=== PATIENT | male | born 1970 | race Caucasian/White ===

== ENCOUNTER 2016-10-06 14:01 | Emergency (ER) | payer MEDICAID, BC, OTHER ==
[2016-10-06 14:23] VITALS: BP 134/95
[2016-10-06] MEDS ORDERED: Ketorolac 30 MG/ML SDV IVPUSH ONE (14:31)
[2016-10-06] MEDS ORDERED: diphenhydrAMINE 50 MG/ML SDV IVPUSH ONE (14:31)
[2016-10-06] MEDS ORDERED: methylPREDNISolone Sodium Succinate 125 MG/2 ML SDV IVPUSH ONE (14:32)
[2016-10-06] MEDS ORDERED: Sodium Chloride 0.9% 1,000 ML IV SCH (14:45)
[2016-10-06] MEDS ORDERED: methylPREDNISolone Sodium Succinate 125 MG/2 ML SDV ONE (14:46)
[2016-10-06] MEDS ORDERED: diphenhydrAMINE 50 MG/ML SDV ONE (14:46)
[2016-10-06] MEDS ORDERED: Ketorolac 30 MG/ML SDV ONE (14:46)
[2016-10-06] MEDS ORDERED: LORazepam 2 MG/ML MDV IM PRN (15:45)
[2016-10-06] MEDS ORDERED: LORazepam 2 MG/ML MDV IVPUSH ONE (15:50)
[2016-10-06] MEDS ORDERED: Acetaminophen/HYDROcodone 325-10 MG Tab PO ONE (15:54)
--- NOTE | 2016-10-06 15:58 | EDM.PDOC ---
ED HPI GENERAL MEDICAL PROBLEM - General Chief Complaint: General Stated Complaint: headache Time Seen by Provider: 10/06/16 14:10 Source of Information: Reports: Patient History Limitations: Reports: No Limitations - History of Present Illness INITIAL COMMENTS - FREE TEXT/NARRATIVE: acute on chronic headache; this is a 46 year old male presents to ER with friend , has complaints of his usual headache, that started on or Friday. He reports throbbing pain in head and ears. Has past history of TBI 2 years ago. He also reports has ran out of his Vicodin and is requesting refill of this medication. Onset: Gradual Onset Date: 09/26/16 Duration: Day(s): (four), Constant Location: Reports: Head Quality: Reports: Same as Previous Episode Severity: Moderate Improves with: Reports: Medication (vicodin resolves headache, but is out of medication) Worsens with: Reports: None Context: Reports: Other (TBI 2 year ago with intermittent headaches.) Associated Symptoms: Reports: Headaches Treatments TOOL MARKER: Reports: Acetaminophen, NSAIDS - Related Data Allergies Allergy/AdvReac Type Severity Reaction Status Date / Time No Known Allergies Allergy Verified 10/06/16 14:17 Home Meds: Home Meds Hydrocodone/Acetaminophen [Hydrocodon-Acetaminophen 5-325] 1 each PO Q6HR PRN # 15 tablet 03/28/16 [Rx] Past Medical History HEENT History: Reports: None Cardiovascular History: Reports: None Respiratory History: Reports: None Gastrointestinal History: Reports: None Genitourinary History: Reports: None Musculoskeletal History: Reports: Fracture Other Musculoskeletal History: Fx bones and stitches, screws in L wrist and L ankle. Broke L clavicle and tore bicep and triceps and had no feeling in hand, it was weak, got some strength but still no feeling. Neurological History: Reports: Brain Injury, Concussion, Headaches, Chronic Psychiatric History: Reports: None, Psychosis Endocrine/Metabolic History: Reports: None Hematologic History: Reports: None Immunologic History: Reports: None Oncologic (Cancer) History: Reports: None Dermatologic History: Reports: None Social & Family History - Tobacco Use Smoking Status *Q: Former Smoker Used Tobacco, but Quit: No Second Hand Smoke Exposure: Yes - Caffeine Use Caffeine Use: Reports: Coffee, Soda Other Caffeine Use: Unable to answer - Recreational Drug Use Recreational Drug Use: Yes Drug Use in Last 12 Months: No Recreational Drug Type: Reports: Cocaine, LSD (Acid) ED ROS GENERAL - Review of Systems Review Of Systems: See Below Constitutional: Reports: Other (headache for 4 days) HEENT: Reports: Ear Pain Respiratory: Reports: No Symptoms Cardiovascular: Reports: No Symptoms Endocrine: Reports: No Symptoms GI/Abdominal: Reports: No Symptoms, Other (ate breakfast without any nausea, vomiting) : Reports: No Symptoms Musculoskeletal: Reports: No Symptoms Skin: Reports: No Symptoms Neurological: Reports: Headache Psychiatric: Reports: Anxiety Hematologic/Lymphatic: Reports: No Symptoms Immunologic: Reports: No Symptoms ED EXAM, GENERAL - Physical Exam Exam: See Below Exam Limited By: No Limitations General Appearance: Alert, WD/WN, No Apparent Distress, Anxious Eye Exam: Bilateral Eye: EOMI, Normal Inspection, PERRL Ears: Normal External Exam Ear Exam: Bilateral Ear: Auricle Normal, Canal Normal, TM normal Nose: Normal Inspection, Normal Mucosa, No Blood Throat/Mouth: Normal Inspection, Normal Lips, Normal Teeth, Normal Gums, Normal Oropharynx, Normal Voice, No Airway Compromise Head: Atraumatic, Normocephalic Neck: Normal Inspection Respiratory/Chest: No Respiratory Distress, Lungs Clear, Normal Breath Sounds, No Accessory Muscle Use, Chest Non-Tender Cardiovascular: Normal Peripheral Pulses, Regular Rate, Rhythm, No Murmur GI/Abdominal: Normal Bowel Sounds, Soft, Non-Tender (Male) Exam: Deferred Rectal (Males) Exam: Deferred Back Exam: Normal Inspection, Full Range of Motion Extremities: Normal Inspection, Normal Range of Motion, Non-Tender, No Pedal Edema, Normal Capillary Refill Neurological: Alert, Oriented, CN II-XII Intact, Normal Cognition, Normal Gait, Normal Reflexes, No Motor/Sensory Deficits Psychiatric: Normal Affect, Normal Mood, Anxious Skin Exam: Warm, Dry, Intact, Normal Color, No Rash Lymphatic: No Adenopathy Course - Vital Signs Last Recorded V/S: Last Vital Signs Temp 37.0 C 10/06/16 14:22 Pulse 80 10/06/16 14:22 Resp 16 10/06/16 14:22 BP 134/95 H 10/06/16 14:22 Pulse Ox 100 10/06/16 14:22 - Orders/Labs/Meds Meds: Medications Discontinued Medications Generic Name Dose Route Start Last Admin Trade Name Freq PRN Reason Stop Dose Admin Hydrocodone Bitart/Acetaminophen 1 tab 10/06/16 15:54 [place] 325-10 Mg PO 10/06/16 15:55 ONETIME ONE Diphenhydramine HCl 25 mg 10/06/16 14:31 10/06/16 14:51 Benadryl IVPUSH 10/06/16 14:32 50 mg ONETIME ONE Administration Diphenhydramine HCl Confirm 10/06/16 14:46 10/06/16 14:53 Benadryl Administered 10/06/16 14:47 Not Given Dose 50 mg .ROUTE .STK-MED ONE Sodium Chloride 1,000 mls @ 999 mls/hr 10/06/16 14:45 10/06/16 14:38 Normal Saline IV 999 mls/hr ASDIRECTED CAROLYNN Administration Ketorolac Tromethamine 30 mg 10/06/16 14:31 10/06/16 14:48 Toradol IVPUSH 10/06/16 14:32 30 mg ONETIME ONE Administration Ketorolac Tromethamine Confirm 10/06/16 14:46 10/06/16 14:53 Toradol Administered 10/06/16 14:47 Not Given Dose 30 mg .ROUTE .STK-MED ONE Lorazepam 1 mg 10/06/16 15:50 10/06/16 16:13 Ativan IVPUSH 10/06/16 15:51 Not Given ONETIME ONE Lorazepam 1 mg 10/06/16 15:45 10/06/16 15:47 Ativan IM 10/06/16 16:45 1 mg ONETIME PRN Administration Agitation Methylprednisolone Sodium Succinate 125 mg 10/06/16 14:32 10/06/16 14:42 Solu-Medrol IVPUSH 10/06/16 14:33 125 mg ONETIME ONE Administration Methylprednisolone Sodium Succinate Confirm 10/06/16 14:46 10/06/16 14:52 Solu-Medrol Administered 10/06/16 14:47 Not Given Dose 125 mg .ROUTE .STK-MED ONE - Re-Assessments/Exams Free Text/Narrative Re-Assessment/Exam: 10/06/16 15:30 Mr. Turcios treated with IV meds and fluids, was noted to be sleeping and snoring. He woke up and stated still with headache. Discussed will give Ativan 1 mg IV for anxiety, but no refill of Vicodin. He will need to see his Primary Care Provider for refill of this medication. Mr. Turcios not happy but agrees to plan of care. 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 Turcios reports pain persist -given IV Ativan 1 mg -will discharge to home, advise to rest, push fluids, take medications as prescribed -call his Primary Care Provider for medication refill of prescription medication Return to Clinic or ER if symptoms return or has any concerns. - Problem List & Annotations (1) Chronic headache SNOMED Code(s): 802532147 Code(s): R51 - HEADACHE Status: Acute Qualifiers: Headache type: post-traumatic Intractability: not intractable Qualified Code(s): G44.329 - Chronic post-traumatic headache, not intractable - Problem List Review Problem List Initiated/Reviewed/Updated: Yes - Assessment/Plan Plan: Chronic Headaches -given IV fluids, IV meds; improvement noted, but Mr. Turcios reports pain persist -given Ativan 1 mg IV -will discharge to home, advise to rest, push fluids, take medications as prescribed -call his Primary Care Provider for medication refill of prescription medication Return to Clinic or ER if symptoms return or has any concerns.
== END 2016-10-06 16:00 | disposition home or self-care (01) ==
LOC: LB.ED 14:01
DX: R51 Headache (principal); G89.29 Other chronic pain; Z87.891 Personal history of nicotine dependence
CPT/HCPCS: 96372; 96374; 96375; 99283; J1200; J1885; J2060; J2930; J7040

== ENCOUNTER 2016-10-07 04:10 | Emergency (ER) | payer BC, MEDICAID ==
[2016-10-07 04:30] VITALS: BP 148/99
[2016-10-07] MEDS ORDERED: Acetaminophen/HYDROcodone 325-5 MG Tab PO ONE (04:31)
[2016-10-07] MEDS ORDERED: Promethazine 25 MG Tab PO PRN (04:31)
--- NOTE | 2016-10-07 04:47 | EDM.PDOC ---
ED HPI GENERAL MEDICAL PROBLEM - General Chief Complaint: Neurological Problem Stated Complaint: HEADACHE Time Seen by Provider: 10/07/16 04:37 Source of Information: Reports: Patient History Limitations: Reports: No Limitations - History of Present Illness INITIAL COMMENTS - FREE TEXT/NARRATIVE: chronic headache; this is a 46 year old male present to ER from walking from his home 2 blocks away. He was seem yesterday afternoon for same symptoms, he is here request pain medication for headache. He has been at home all day, was able to rest for a few hours then was up working around the home. His head pain return full force he has been up all night trying to block out the pain with work, but becoming agitated, decided to walk to ER. pain; chronic headache, unchange from previous headache. no nausea, vomiting. Onset: Gradual Duration: Getting Worse Location: Reports: Head Quality: Reports: Same as Previous Episode Improves with: Reports: None Worsens with: Reports: None Context: Reports: Other (chronic headaches) Associated Symptoms: Reports: Other (irratation) Frontal Headache Pain Score (Numeric/FACES): 10 - Related Data Allergies Allergy/AdvReac Type Severity Reaction Status Date / Time No Known Allergies Allergy Verified 10/07/16 04:30 Home Meds: Home Meds Hydrocodone/Acetaminophen [Hydrocodon-Acetaminophen 5-325] 1 each PO Q6HR PRN # 15 tablet 03/28/16 [Rx] Past Medical History HEENT History: Reports: None Cardiovascular History: Reports: None Respiratory History: Reports: None Gastrointestinal History: Reports: None Genitourinary History: Reports: None Musculoskeletal History: Reports: Fracture Other Musculoskeletal History: Fx bones and stitches, screws in L wrist and L ankle. Broke L clavicle and tore bicep and triceps and had no feeling in hand, it was weak, got some strength but still no feeling. Neurological History: Reports: Brain Injury, Concussion, Headaches, Chronic Psychiatric History: Reports: None, Psychosis Endocrine/Metabolic History: Reports: None Hematologic History: Reports: None Immunologic History: Reports: None Oncologic (Cancer) History: Reports: None Dermatologic History: Reports: None Social & Family History - Tobacco Use Smoking Status *Q: Former Smoker Used Tobacco, but Quit: No Second Hand Smoke Exposure: Yes - Caffeine Use Caffeine Use: Reports: Coffee, Soda Other Caffeine Use: Unable to answer - Recreational Drug Use Recreational Drug Use: Yes Drug Use in Last 12 Months: No Recreational Drug Type: Reports: Cocaine, LSD (Acid) ED ROS GENERAL - Review of Systems Review Of Systems: See Below Constitutional: Reports: Other (headache) HEENT: Reports: No Symptoms Respiratory: Reports: No Symptoms Cardiovascular: Reports: No Symptoms Endocrine: Reports: No Symptoms GI/Abdominal: Reports: No Symptoms : Reports: No Symptoms Musculoskeletal: Reports: No Symptoms Neurological: Reports: Headache, Pre-Existing Deficit Psychiatric: Reports: Agitation Hematologic/Lymphatic: Reports: No Symptoms Immunologic: Reports: No Symptoms ED EXAM, GENERAL - Physical Exam Exam: See Below Exam Limited By: No Limitations General Appearance: Alert, WD/WN, No Apparent Distress, Anxious Eye Exam: Bilateral Eye: EOMI, Normal Inspection, PERRL Ears: Normal External Exam, Normal Canal, Hearing Grossly Normal, Normal TMs Ear Exam: Bilateral Ear: Auricle Normal, Canal Normal, TM normal Nose: Normal Inspection, Normal Mucosa, No Blood Throat/Mouth: Normal Inspection, Normal Lips, Normal Teeth, Normal Gums, Normal Oropharynx, Normal Voice, No Airway Compromise Head: Atraumatic, Normocephalic Neck: Normal Inspection, Supple, Non-Tender, Full Range of Motion Respiratory/Chest: No Respiratory Distress, Lungs Clear, Normal Breath Sounds, No Accessory Muscle Use, Chest Non-Tender Cardiovascular: Normal Peripheral Pulses, Regular Rate, Rhythm, No Edema, No Gallop, No JVD, No Murmur, No Rub GI/Abdominal: Normal Bowel Sounds, Soft, Non-Tender, No Organomegaly, No Distention, No Abnormal Bruit, No Mass Neurological: No Motor/Sensory Deficits Psychiatric: Normal Affect, Normal Mood Skin Exam: Warm, Dry, Intact, Normal Color, No Rash Lymphatic: No Adenopathy Course - Vital Signs Last Recorded V/S: Last Vital Signs Temp 36.8 C 10/07/16 04:24 Pulse 97 10/07/16 04:24 Resp 16 10/07/16 04:24 BP 148/99 H 10/07/16 04:24 Pulse Ox 98 10/07/16 04:24 - Orders/Labs/Meds Orders: Active Orders 24 hr Category Date Time Status Promethazine [Phenergan] Med 10/07/16 04:31 Active 25 mg PO Q4H PRN Medication Orders Promethazine HCl (Phenergan) 25 mg PO Q4H PRN PRN Reason: Nausea/Vomiting Last Admin: 10/07/16 04:36 Dose: 25 mg Meds: Medications Generic Name Dose Route Start Last Admin Trade Name Zac PRN Reason Stop Dose Admin Promethazine HCl 25 mg 10/07/16 04:31 10/07/16 04:36 Phenergan PO 25 mg Q4H PRN Administration Nausea/Vomiting Discontinued Medications Generic Name Dose Route Start Last Admin Trade Name Frediane PRN Reason Stop Dose Admin Hydrocodone Bitart/Acetaminophen 1 tab 10/07/16 04:31 10/07/16 04:36 [place] 325-5 Mg PO 10/07/16 04:32 1 tab ONETIME ONE Administration - Re-Assessments/Exams Free Text/Narrative Re-Assessment/Exam: 10/07/16 04:50 will give hydrocodone 5-325 mg po once, phenergan 25 mg po once advise to go home and rest. will follow up in clinic today for medication refill. Mr. Turcios agrees with plan of care. Departure - Departure Time of Disposition: 04:52 Disposition: Home, Self-Care 01 Condition: Good Clinical Impression: Chronic headache Qualifiers: Headache type: post-traumatic Intractability: not intractable Qualified Code(s) : G44.329 - Chronic post-traumatic headache, not intractable - Discharge Information Forms: ED Department Discharge Care Plan Goals: Headache -treated with oral medication -rest, push fluids, take tylenol or motrin as directed return to clinic or er if not improved or symptoms worsen. - Problem List & Annotations (1) Chronic headache SNOMED Code(s): 657373626 Code(s): R51 - HEADACHE Status: Acute Priority: Low Qualifiers: Headache type: post-traumatic Intractability: not intractable Qualified Code(s): G44.329 - Chronic post-traumatic headache, not intractable - Problem List Review Problem List Initiated/Reviewed/Updated: Yes - My Orders Last 24 Hours: My Active Orders 10/07/16 04:31 Promethazine [Phenergan] 25 mg PO Q4H PRN - Assessment/Plan Last 24 Hours: My Active Orders 10/07/16 04:31 Promethazine [Phenergan] 25 mg PO Q4H PRN Plan: Headache -treated with oral medication -rest, push fluids, take tylenol or motrin as directed return to clinic or er if not improved or symptoms worsen.
== END 2016-10-07 04:45 | disposition home or self-care (01) ==
LOC: LB.ED 04:10
DX: G44.329 Chronic post-traumatic headache, not intractable (principal); Z87.891 Personal history of nicotine dependence
CPT/HCPCS: 99283; A9270

== ENCOUNTER 2016-11-04 17:21 | Emergency (ER) | payer MEDICAID, OTHER ==
[2016-11-04 17:36] VITALS: BP 137/91
[2016-11-04] MEDS ORDERED: Ondansetron 4 MG Tab.DIS ONE (17:40)
[2016-11-04] MEDS ORDERED: Ketorolac 60 MG/2 ML SDV IM ONE (18:05)
[2016-11-04] MEDS ORDERED: Promethazine 25 MG/ML SDV IM ONE (18:10)
[2016-11-04] MEDS ORDERED: Promethazine 25 MG/ML SDV ONE (18:13)
[2016-11-04] MEDS ORDERED: Ketorolac 60 MG/2 ML SDV ONE (18:13)
--- NOTE | 2016-11-04 18:41 | EDM.PDOC ---
ED HPI GENERAL MEDICAL PROBLEM - General Chief Complaint: General Stated Complaint: headache Time Seen by Provider: 11/04/16 17:45 Source of Information: Reports: Patient History Limitations: Reports: No Limitations - History of Present Illness INITIAL COMMENTS - FREE TEXT/NARRATIVE: This is a 46yo M with a long standing history of frequent headaches. Today he states he was working and reached up to get a wrench and hit his head on a ladder. He states his headache became unbearable and is a 10/10 at this time. He recently saw Dr. Bustillos and discussed surgical options for his C-Spine and is still considering his options as he is aware of complications that may arise. He has a follow up [facility] [place] on . He states that they focused on his headache and gave him injections along the forehead that did not help at all. Onset: Sudden Duration: Hour(s): Location: Reports: Head Quality: Reports: Ache Severity: Severe Improves with: Reports: None Worsens with: Reports: None Associated Symptoms: Reports: Nausea/Vomiting headache Pain Score (Numeric/FACES): 10 - Related Data Allergies Allergy/AdvReac Type Severity Reaction Status Date / Time No Known Allergies Allergy Verified 11/04/16 17:36 Past Medical History HEENT History: Reports: None Cardiovascular History: Reports: None Respiratory History: Reports: None Gastrointestinal History: Reports: None Genitourinary History: Reports: None Musculoskeletal History: Reports: Fracture Other Musculoskeletal History: Fx bones and stitches, screws in L wrist and L ankle. Broke L clavicle and tore bicep and triceps and had no feeling in hand, it was weak, got some strength but still no feeling. Neurological History: Reports: Brain Injury, Concussion, Headaches, Chronic Psychiatric History: Reports: None, Psychosis Endocrine/Metabolic History: Reports: None Hematologic History: Reports: None Immunologic History: Reports: None Oncologic (Cancer) History: Reports: None Dermatologic History: Reports: None Social & Family History - Tobacco Use Smoking Status *Q: Former Smoker Used Tobacco, but Quit: No Second Hand Smoke Exposure: Yes - Caffeine Use Caffeine Use: Reports: Coffee, Soda Other Caffeine Use: Unable to answer - Recreational Drug Use Recreational Drug Use: Yes Drug Use in Last 12 Months: No Recreational Drug Type: Reports: Cocaine, LSD (Acid) ED ROS GENERAL - Review of Systems Review Of Systems: ROS reveals no pertinent complaints other than HPI. ED EXAM, GENERAL - Physical Exam Exam: See Below Exam Limited By: No Limitations General Appearance: Alert, WD/WN, Mild Distress Eye Exam: Bilateral Eye: EOMI, PERRL Ears: Normal External Exam Nose: Normal Inspection Throat/Mouth: Normal Inspection Head: Other (swelling at the right upper scalp with a bruise 3x4cm) Neck: Normal Inspection Respiratory/Chest: No Respiratory Distress Cardiovascular: Normal Peripheral Pulses, Regular Rate, Rhythm GI/Abdominal: Normal Bowel Sounds Neurological: Alert, Oriented, CN II-XII Intact Psychiatric: Normal Affect, Normal Mood Skin Exam: Warm, Dry, Intact Course - Vital Signs Last Recorded V/S: Last Vital Signs Temp 36.5 C 11/04/16 17:33 Pulse 87 11/04/16 17:33 Resp 16 11/04/16 17:33 BP 137/91 H 11/04/16 17:33 Pulse Ox 98 11/04/16 17:33 - Orders/Labs/Meds Orders: Active Orders 24 hr Category Date Time Status Head wo Cont [CT] Stat Exams 11/04/16 17:30 Taken Meds: Medications Discontinued Medications Generic Name Dose Route Start Last Admin Trade Name Zac PRN Reason Stop Dose Admin Ketorolac Tromethamine 60 mg 11/04/16 18:05 11/04/16 18:15 Toradol IM 11/04/16 18:06 60 mg ONETIME ONE Administration Ketorolac Tromethamine Confirm 11/04/16 18:13 Toradol Administered 11/04/16 18:14 Dose 60 mg .ROUTE .STK-MED ONE Promethazine HCl 25 mg 11/04/16 18:10 11/04/16 18:15 Phenergan IM 11/04/16 18:11 25 mg ONETIME ONE Administration Promethazine HCl Confirm 11/04/16 18:13 Phenergan Administered 11/04/16 18:14 Dose 25 mg .ROUTE .STK-MED ONE Departure - Departure Time of Disposition: 18:20 Disposition: Home, Self-Care 01 Condition: Good Clinical Impression: Headache Qualifiers: Headache type: unspecified Headache chronicity pattern: acute headache Intractability: intractable Qualified Code(s): R51 - Headache - Discharge Information Instructions: Anterior Cervical Diskectomy and Fusion Referrals: PCP,None [Primary Care Provider] - Forms: ED Department Discharge Additional Instructions: Get some rest and follow up with the pain management and/or Dr. Bustillos this week. Care Plan Goals: Counseled on the need to f/u with specialists. Discussed supportive/ conservative measures for relief. F/u as needed. - My Orders Last 24 Hours: My Active Orders 11/04/16 17:30 Head wo Cont [CT] Stat - Assessment/Plan Last 24 Hours: My Active Orders 11/04/16 17:30 Head wo Cont [CT] Stat
--- NOTE | 2016-11-06 08:17 | CR ---
Date of Service: 11/04/2016 Clinical Data: Hematoma on right side of head. UNENHANCED BRAIN CT: Multislice acquisition through the brain without IV contrast was performed. Comparison is made to a prior exam dated 03/26/2016. There is diffuse cerebral atrophy. There are periventricular lucencies bilaterally consistent with small vessel ischemic change. No masses or mass effect. No intracranial hemorrhage. No evidence of acute or subacute infarct. There is minimal mucosal thickening in the ethmoid sinuses consistent with chronic sinusitis. Impression: No acute intracranial abnormalities. Thank you for allowing us to participate in the care of your patient. JACOB
== END 2016-11-04 18:23 | disposition home or self-care (01) ==
LOC: LB.ED 17:21
DX: S00.03XA Contusion of scalp, initial encounter (principal); Z87.891 Personal history of nicotine dependence; W22.03XA Walked into furniture, initial encounter
CPT/HCPCS: 70450; 96372; 99284; A9270; J1885; J2550

== ENCOUNTER 2017-05-13 12:38 | Emergency (ER) | payer BC, SELFPAY ==
[2017-05-13 12:53] VITALS: BP 152/92
--- NOTE | 2017-05-13 13:12 | EDM.PDOC ---
ED HPI GENERAL MEDICAL PROBLEM - General Chief Complaint: General Stated Complaint: HEAD PAIN Time Seen by Provider: 05/13/17 12:40 Source of Information: Reports: Patient History Limitations: Reports: No Limitations - History of Present Illness INITIAL COMMENTS - FREE TEXT/NARRATIVE: According to patient he has been having headache for a long time now. He presents with headache al over the head started on Friday. rates pain at 10/ 10.No blurry vision, dizziness. He calims he has been seen by Dr. 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 Also he claims that his abdomen is hurting all over, he has been having vomiting episodes at home. Wants to be checked for pancreatitis. he has had previous history of pancreatitis. He claims he did have normal bowel movement yesterday. abdominal bloating. no fever or chils. Onset Date: 05/11/17 Location: Reports: Head, Abdomen Quality: Reports: Ache Severity: Moderate Improves with: Reports: None Worsens with: Reports: None Associated Symptoms: Reports: Nausea/Vomiting. Denies: Confusion, Chest Pain, Cough, Fever/Chills, Headaches, Rash, Seizure, Shortness of Breath, Syncope, Weakness Bilateral Upper Neck Pain Score (Numeric/FACES): 12 - Related Data Allergies Allergy/AdvReac Type Severity Reaction Status Date / Time No Known Allergies Allergy Verified 11/04/16 17:36 Past Medical History HEENT History: Reports: None Cardiovascular History: Reports: None Respiratory History: Reports: None Gastrointestinal History: Reports: None Genitourinary History: Reports: None Musculoskeletal History: Reports: Fracture Other Musculoskeletal History: Fx bones and stitches, screws in L wrist and L ankle. Broke L clavicle and tore bicep and triceps and had no feeling in hand, it was weak, got some strength but still no feeling. Neurological History: Reports: Brain Injury, Concussion, Headaches, Chronic Psychiatric History: Reports: None, Psychosis Endocrine/Metabolic History: Reports: None Hematologic History: Reports: None Immunologic History: Reports: None Oncologic (Cancer) History: Reports: None Dermatologic History: Reports: None Social & Family History - Tobacco Use Smoking Status *Q: Light Tobacco Smoker Used Tobacco, but Quit: No Second Hand Smoke Exposure: Yes - Caffeine Use Caffeine Use: Reports: Coffee, Soda Other Caffeine Use: Unable to answer - Recreational Drug Use Recreational Drug Use: Yes Drug Use in Last 12 Months: No Recreational Drug Type: Reports: Cocaine, LSD (Acid) ED ROS GENERAL - Review of Systems Review Of Systems: See Below Constitutional: Denies: Fever, Chills HEENT: Denies: Rhinitis, Sinus Problem, Throat Pain, Throat Swelling Respiratory: Denies: Cough, Sputum Cardiovascular: Denies: Chest Pain, Lightheadedness GI/Abdominal: Reports: Abdominal Pain, Nausea, Vomiting. Denies: Constipation, Diarrhea : Denies: Dysuria, Flank Pain Musculoskeletal: Denies: Foot Pain, Joint Pain, Joint Swelling Skin: Denies: Bruising, Pruritis Neurological: Denies: Dizziness, Headache, Seizure, Syncope, Tingling Psychiatric: Denies: Agitation, Anxiety ED EXAM, GENERAL - Physical Exam Exam: See Below Exam Limited By: No Limitations General Appearance: Alert, WD/WN, No Apparent Distress Eye Exam: Bilateral Eye: EOMI, PERRL Ears: Normal External Exam, Normal Canal, Hearing Grossly Normal, Normal TMs Ear Exam: Bilateral Ear: Auricle Normal, Canal Normal, TM normal Nose: Normal Inspection, Normal Mucosa, No Blood Throat/Mouth: Normal Inspection, Normal Lips, Normal Teeth, Normal Gums, Normal Oropharynx, Normal Voice, No Airway Compromise Head: Atraumatic, Normocephalic Neck: Normal Inspection, Supple, Non-Tender, Full Range of Motion Respiratory/Chest: No Respiratory Distress, Lungs Clear, Normal Breath Sounds, No Accessory Muscle Use, Chest Non-Tender Cardiovascular: Normal Peripheral Pulses, Regular Rate, Rhythm, No Edema, No Gallop, No JVD, No Murmur, No Rub GI/Abdominal: Normal Bowel Sounds, Soft, Distended, Tender (all over the abdomen ). No: Guarding, Rigid, Rebound, Mass Extremities: Normal Inspection, Normal Range of Motion, Non-Tender, Normal Capillary Refill, No Pedal Edema Neurological: Alert, Oriented, CN II-XII Intact, Normal Cognition, Normal Gait, Normal Reflexes, No Motor/Sensory Deficits Course - Vital Signs Text/Narrative:: I did call, 's office at [facility] and discuss patient with him. Apparently Dr. Nolen has seen him one time in 2017 for headache issue and workup was negative. He recommended non-narcotic treatment for his headache, in the form of Prednisone 40mg daily for 3 days. But, Presently I am waiting on his lab work, to rule out pancreatitis, before starting the treatment.He did receive zofran 4mg ODT one dose. Pt's CT abdomen is negative for acute abdomen. Also his CBC and CMP are normal His Lipase is normal. His ETOH level is 177 elevated. I did discuss the results with patient and reassured that he might have had some gastroenteritis.As per 's recommendation gave him script fo prednisone 40mg daily for 3 days. He requested if he could get some hydrocodone , which I have declined at this point. I have advised patient to call Dr. Nolen 's office and make followup appointment for his headache workup. Last Recorded V/S: Last Vital Signs Temp 98.1 F 05/13/17 12:52 Pulse 109 H 05/13/17 12:52 Resp 20 05/13/17 12:52 BP 152/92 H 05/13/17 12:52 Pulse Ox 98 05/13/17 12:52 - Orders/Labs/Meds Orders: Active Orders 24 hr Category Date Time Status Abdomen Pelvis wo Cont [CT] Stat Exams 05/13/17 12:58 Taken Labs: Laboratory Tests 05/13/17 05/13/17 Range/Units 13:27 13:28 WBC 5.8 D (4.0-11.0) K/uL RBC 5.14 (4.50-6.50) M/uL Hgb 15.9 (13.0-18.0) g/dL Hct 45.0 (40.0-54.0) % MCV 88 (76-96) fL MCH 30.9 (27.0-32.0) pg MCHC 35.3 H (31.0-35.0) g/dL RDW 13.1 (11.0-16.0) % Plt Count 242 (150-400) K/uL MPV 9.2 (6.0-10.0) fL Neut % (Auto) 47.0 (45.0-70.0) % Lymph % (Auto) 38.2 (20.0-40.0) % [place] % (Auto) 13.4 H (3.0-10.0) % Eos % (Auto) 0.7 L (1.0-5.0) % Baso % (Auto) 0.7 H (0.0-0.5) % Neut # (Auto) 2.73 (2.00-7.50) K/uL Lymph # (Auto) 2.22 (1.50-4.00) K/uL [place] # (Auto) 0.78 (0.20-0.80) K/uL Eos # (Auto) 0.04 (0.04-0.40) K/uL Baso # (Auto) 0.04 (0.02-0.10) K/uL Sodium 145 (136-145) mmol/L Potassium 4.4 (3.5-5.1) mmol/L Chloride 103 (98-107) mmol/L Carbon Dioxide 26.8 (21.0-32.0) mmol/L Anion Gap 19.6 H (5.0-15.0) mmol/L BUN 14 D (8-26) mg/dL Creatinine 0.82 (0.70-1.30) mg/dL Est Cr Clr Drug Dosing 111.22 mL/min Estimated GFR (MDRD) > 60 (>60) MLS/MIN BUN/Creatinine Ratio 17.1 (6-25) Glucose 129 H D (74-100) mg/dL Calcium 9.3 (8.5-10.1) mg/dL Total Bilirubin 0.9 D (0.0-1.0) mg/dL AST 39 H (15-37) U/L ALT 34 (12-78) U/L Alkaline Phosphatase 62 (46-116) U/L Total Protein 8.2 (6.4-8.2) g/dL Albumin 4.4 (3.4-5.0) g/dL Globulin 3.8 (2.2-4.2) g/dL Albumin/Globulin Ratio 1.2 (0.8-2.0) Lipase 176 D (73-393) U/L Ethyl Alcohol 177.0 H (0.0-0.0) mg/dL Meds: Medications Discontinued Medications Generic Name Dose Route Start Last Admin Trade Name Freq PRN Reason Stop Dose Admin Ondansetron HCl 4 mg 05/13/17 13:58 05/13/17 14:08 Zofran Odt PO 05/13/17 13:59 4 mg ONETIME ONE Administration Ondansetron HCl Confirm 05/13/17 14:13 Zofran Odt Administered 05/13/17 14:14 Dose 4 mg .ROUTE .STK-MED ONE Departure - Departure Time of Disposition: 14:50 Disposition: Home, Self-Care 01 Condition: Fair Clinical Impression: Abdominal pain Headache Qualifiers: Headache type: unspecified Headache chronicity pattern: acute headache Intractability: intractable Qualified Code(s): R51 - Headache - Discharge Information Instructions: Head Injury, Adult, Ibuprofen; Pseudoephedrine tablets or caplets , General Headache Without Cause, [id number], Analgesic Rebound Headache Referrals: PCP,None [Primary Care Provider] - Forms: ED Department Discharge Care Plan Goals: Take medication as prescribed by provider. Follow up with Dr Nolen if symptoms persist. - Problem List & Annotations (1) Headache SNOMED Code(s): 95815743 Code(s): R51 - HEADACHE Status: Acute Qualifiers: Headache type: unspecified Headache chronicity pattern: acute headache Intractability: intractable Qualified Code(s): R51 - Headache (2) Abdominal pain SNOMED Code(s): 78217398 Code(s): R10.9 - UNSPECIFIED ABDOMINAL PAIN Status: Acute - Problem List Review Problem List Initiated/Reviewed/Updated: Yes - My Orders Last 24 Hours: My Active Orders 05/13/17 12:58 Abdomen Pelvis wo Cont [CT] Stat - Assessment/Plan Last 24 Hours: My Active Orders 05/13/17 12:58 Abdomen Pelvis wo Cont [CT] Stat Assessment:: Headache Abdominal pain NOS Plan: I did call, 's office at [facility] and discuss patient with him. Apparently Dr. Nolen has seen him one time in 2017 for headache issue and workup was negative. He recommended non-narcotic treatment for his headache, in the form of Prednisone 40mg daily for 3 days. But, Presently I am waiting on his lab work, to rule out pancreatitis, before starting the treatment.He did receive zofran 4mg ODT one dose. Pt's CT abdomen is negative for acute abdomen. Also his CBC and CMP are normal His Lipase is normal. His ETOH level is 177 elevated. I did discuss the results with patient and reassured that he might have had some gastroenteritis.As per 's recommendation gave him script fo prednisone 40mg daily for 3 days. He requested if he could get some hydrocodone , which I have declined at this point. I have advised patient to call Dr. Nolen 's office and make followup appointment for his headache workup.
[2017-05-13] MEDS ORDERED: Ondansetron 4 MG Tab.DIS PO ONE (13:58)
[2017-05-13] MEDS ORDERED: Ondansetron 4 MG Tab.DIS ONE (14:13)
--- NOTE | 2017-05-13 18:32 | CT ---
DATE OF SERVICE: 05/13/17 CLINICAL DATA: abdominal pain UNENHANCED ABDOMEN AND PELVIC CT: Multislice acquisition through the abdomen and pelvis without IV or oral contrast was performed. No priors. Breathing motion artifact does degrade image quality. The lung bases are clear. The unenhanced liver appears normal. No focal hepatic lesions. The gallbladder is mildly distended. No gallstones. No pericholecystic fluid. The spleen appears normal. The pancreas appears normal. The right and left adrenals appear normal. There is a 10 mm low density lesion in the lower pole of the left kidney most likely representing a cyst. Ultrasound or an enhanced dedicated renal CT is recommended to further evaluate it. No nephrocalcinosis or nephrolithiasis. No hydronephrosis or hydroureter. The bladder is fluid-filled and appears normal. The appendix is not dilated. No evidence of appendicitis. No free air. No free fluid. No dilated loops of bowel. No adenopathy. No aortic aneurysm. There is an umbilical hernia containing fat. IMPRESSION: No acute abnormalities. Other findings as discussed above. See above recommendation. [id number] MTDD
== END 2017-05-13 14:38 | disposition home or self-care (01) ==
LOC: LB.ED 12:38
DX: R51 Headache (principal); R10.9 Unspecified abdominal pain; F17.210 Nicotine dependence, cigarettes, uncomplicated
CPT/HCPCS: 36415; 74176; 80053; 83690; 85025; 99284-25; A9270-GY; G0480

== ENCOUNTER 2022-02-24 20:05 | Observation (INO) | payer MEDICAID ==
[2022-02-24] MEDS ORDERED: LORazepam 2 MG/ML SDV IVPUSH ONE ×3 (20:22→20:55)
[2022-02-24] MEDS ORDERED: Sodium Chloride 0.9% 1,000 ML IV ONE (20:54)
[2022-02-24] MEDS: Ondansetron 4 MG/2 ML SDV IVPUSH ONE ×2 (20:55→23:24)
[2022-02-24] MEDS ORDERED: Ondansetron 4 MG/2 ML SDV ONE (21:01)
[2022-02-24] MEDS ORDERED: Ketorolac 30 MG/ML SDV IVPUSH ONE (21:37)
[2022-02-24] MEDS ORDERED: Ketorolac 30 MG/ML SDV ONE (21:47)
[2022-02-24] MEDS ORDERED: Morphine 4 MG/ML VIAL IVPUSH ONE (22:21)
[2022-02-24] MEDS ORDERED: Potassium Phosphates 3 mMole/ML 15 ML SDV IV STA (22:21)
[2022-02-24] MEDS ORDERED: Morphine 4 MG/ML VIAL ONE (22:47)
[2022-02-24] MEDS ORDERED: Ketamine 200 MG/20 ML MDV IVPUSH ONE (23:10)
[2022-02-24] MEDS ORDERED: Prochlorperazine 10 MG/2 ML SDV IVPUSH ONE (23:10)
[2022-02-24] MEDS ORDERED: Ketamine 200 MG/20 ML MDV ONE (23:22)
[2022-02-24] MEDS ORDERED: Prochlorperazine 10 MG/2 ML SDV ONE (23:22)
[2022-02-25] MEDS ORDERED: MVI, Adult with Vitamin K 10 ML, Thiamine 100 MG, Folic Acid 1 MG, Magnesium Sulfate 3 ... IV SCH ×5 (01:00)
[2022-02-25] MEDS: LORazepam 2 MG/ML SDV IVPUSH PRN ×8 (04:10→22:13)
[2022-02-25] MEDS: SODIUM CHLORIDE IV SCH ×3 (04:44→13:45)
[2022-02-25] MEDS: POTASSIUM PHOSPHATES IV SCH ×3 (04:44→13:45)
[2022-02-25] MEDS ORDERED: Potassium Phosphates 3 mMole/ML 15 ML SDV IV SCH (07:30)
[2022-02-25] MEDS ORDERED: Omeprazole 20 MG Cap.CR PO SCH (09:29)
[2022-02-25] MEDS ORDERED: Morphine 2 MG/ML SYRINGE IVPUSH ONE (09:51)
[2022-02-25] MEDS: Gabapentin 100 MG Cap PO SCH ×3 (10:21→19:21)
[2022-02-25] MEDS: Propranolol 20 MG Tab PO SCH ×2 (10:21→19:21)
[2022-02-25] MEDS ORDERED: KETAMINE IV ONE ×2 (11:00→12:00)
[2022-02-25] MEDS ORDERED: SODIUM CHLORIDE 0.9% IV ONE ×2 (11:00→12:00)
[2022-02-25] MEDS ORDERED: Ketamine 200 MG/20 ML MDV IV ONE (13:00)
[2022-02-25] MEDS ORDERED: LORazepam 2 MG/ML SDV IM PRN (13:12)
[2022-02-25] MEDS: Ondansetron 4 MG/2 ML SDV IVPUSH PRN ×2 (13:30→19:20)
[2022-02-25] MEDS ORDERED: Orphenadrine 60 MG/2 ML Inj IM SCH (14:00)
[2022-02-25] MEDS ORDERED: guaiFENesin/Dextromethorphan 100-10 MG/5 ML Soln 10 ML Cup PO PRN (14:01)
[2022-02-25] MEDS ORDERED: Promethazine 12.5 MG in Sodium Chloride 0.9% 50 ML IV PRN (14:03)
[2022-02-25] MEDS: Ketorolac 30 MG/ML SDV IVPUSH PRN ×2 (14:18→20:08)
[2022-02-25] MEDS ORDERED: Pantoprazole 40 MG Vial IVPUSH SCH (14:30)
[2022-02-25] MEDS ORDERED: Pantoprazole 40 MG Vial ONE (14:30)
[2022-02-25] MEDS ORDERED: Lactated Ringers 1,000 ML IV SCH (19:15)
[2022-02-25] MEDS ORDERED: LORAZEPAM IV SCH ×2 (23:15)
[2022-02-25] MEDS ORDERED: DEXTROSE 5% IV SCH ×2 (23:15)
[2022-02-25] MEDS ORDERED: WATER IV SCH ×2 (23:15)
[2022-02-25] MEDS ORDERED: LORazepam 2 MG/ML SDV IVPUSH ONE (23:44)
[2022-02-25] MEDS ORDERED: LORazepam 2 MG/ML SDV ONE (23:47)
[2022-02-26 00:25] VITALS: BP 156/92; PULSE 65
[2022-02-26] MEDS ORDERED: Haloperidol Lactate 5 MG/ML SDV IVPUSH ONE (00:44)
== END 2022-02-26 01:45 | disposition left against medical advice (07) ==
LOC: LB.ED 20:05 → LB.MS 02-25 00:35
PROVIDERS: ADMIT Surgery; ATTEND Surgery
DX: F10.930 Alcohol use, unspecified with withdrawal, uncomplicated (principal); R11.10 Vomiting, unspecified; E83.39 Other disorders of phosphorus metabolism; E83.42 Hypomagnesemia; G44.329 Chronic post-traumatic headache, not intractable; F41.9 Anxiety disorder, unspecified; I10 Essential (primary) hypertension; Z87.891 Personal history of nicotine dependence
CPT/HCPCS: 36415; 70450; 80048; 80053; 80307; 83690; 83735; 84100; 84484; 85027; 96361; 96365; 96375; 96376; 99283; 99285-25; A9270-GY; C9113; J0780; J1630; J1885; J2060; J2270; J2360; J2405; J2550; J3411; J3475; J3490; J7030; J7050; J7120

== ENCOUNTER 2022-08-25 12:52 | Emergency (ER) | payer MEDICAID ==
[2022-08-25] MEDS: Sodium Chloride 0.9% 1,000 ML IV ONE (13:40)
[2022-08-25 14:30] LABS: BASOPHILS ABSOLUTE AUTO 0.03 K/uL (0.02-0.10); BASOPHILS PERCENT AUTO 0.3 % (0.0-0.5); EOSINOPHILS ABSOLUTE AUTO 0.02 K/uL (0.04-0.40); EOSINOPHILS PERCENT AUTO 0.2 % (1.0-5.0); HEMATOCRIT 44.5 % (40.0-54.0); HEMOGLOBIN 15.8 g/dL (13.0-18.0); LYMPHOCYTES ABSOLUTE AUTO 1.45 K/uL (1.50-4.00); LYMPHOCYTES PERCENT AUTO 12.1 % (20.0-40.0); MEAN CORPUSCULAR HEMOGLOBIN 33.2 pg (27.0-32.0); MEAN CORPUSCULAR HGB CONC 35.5 g/dL (31.0-35.0); MEAN CORPUSCULAR VOLUME 94 fL (76-96); MEAN PLATELET VOLUME 10.7 fL (6.0-10.0); MONOCYTES ABSOLUTE AUTO 1.77 K/uL (0.20-0.80); MONOCYTES PERCENT AUTO 14.8 % (3.0-10.0); NEUTROPHILS ABSOLUTE AUTO 8.68 K/uL (2.00-7.50); NEUTROPHILS PERCENT AUTO 72.6 % (45.0-70.0); PLATELET COUNT,PLT 113 K/uL (150-400); RED BLOOD CELL COUNT 4.76 M/uL (4.50-6.50); RED CELL DISTRIBUTION WIDTH 13.5 % (11.0-16.0)
[2022-08-25 14:47] LABS: PTT,PARTIAL THROMBOPLSTIN TIME 27.9 SECONDS (24.4-33.2)
[2022-08-25 14:50] LABS: PROTHROMBIN TIME 9.9 sec (9.0-11.5)
[2022-08-25 15:00] LABS: A/G RATIO 0.8 (0.8-2.0); SODIUM,NA 133 mmol/L (136-145)
[2022-08-25 15:15] LABS: ALANINE AMINOTRANSFERASE,ALT 23 U/L (12-78); ALBUMIN 3.8 g/dL (3.4-5.0); ASPARTATE AMNIOTRANSFERASE,AST 44 U/L (15-37); BLOOD UREA NITROGEN,BUN 17 mg/dL (8-26); BUN/CREATININE RATIO 12.6 (6-25); CALCIUM 10.3 mg/dL (8.5-10.1); CARBON DIOXIDE,CO2 26.7 mmol/L (21.0-32.0); CHLORIDE,CL 94 mmol/L (98-107); CREATININE 1.35 mg/dL (0.70-1.30); ESTIMATED GFR 64 mL/min (>60); GLUCOSE RANDOM 143 mg/dL (74-100); LIPASE 95 U/L (16-77); PROTEIN TOTAL,TP 8.4 g/dL (6.4-8.2); TROPONIN I HIGH SENSITIVITY 19.7 pg/ml (<=60.4)
[2022-08-25] MEDS: Potassium Chloride 20 MEQ Tab.ER PO ONE (15:18)
[2022-08-25 15:19] LABS: ANION GAP 15.1 mmol/L (5.0-15.0); POTASSIUM,K 2.8 mmol/L (3.5-5.1)
[2022-08-25 15:26] LABS: INFLUENZA A NAA NEGATIVE (NEGATIVE); INFLUENZA B NAA NEGATIVE (NEGATIVE)
[2022-08-25 15:30] LABS: CORONAVIRUS COVID-19 NAA NEGATIVE (NEGATIVE)
[2022-08-25 17:22] VITALS: BP 120/61; PULSE 99
== END 2022-08-25 16:13 | disposition home or self-care (01) ==
LOC: LB.ED 12:52
DX: B34.9 Viral infection, unspecified (principal); Z20.822 Contact with and (suspected) exposure to COVID-19
CPT/HCPCS: 0240U; 36415; 71045; 80053; 83690; 84484; 85025; 85379; 85610; 85730; 93005; 96360; 99284; A9270; J7030

== ENCOUNTER 2022-09-24 13:09 | Emergency (ER) | payer MEDICAID ==
[2022-09-24] MEDS ORDERED: Sodium Chloride 0.9% 1,000 ML IV ONE (13:43)
[2022-09-24] MEDS ORDERED: LORazepam 2 MG/ML SDV IVPUSH ONE (13:43)
[2022-09-24 14:21] LABS: BASOPHILS ABSOLUTE AUTO 0.02 K/uL (0.02-0.10); BASOPHILS PERCENT AUTO 0.2 % (0.0-0.5); EOSINOPHILS ABSOLUTE AUTO 0.01 K/uL (0.04-0.40); EOSINOPHILS PERCENT AUTO 0.1 % (1.0-5.0); HEMATOCRIT 43.8 % (40.0-54.0); HEMOGLOBIN 15.7 g/dL (13.0-18.0); LYMPHOCYTES ABSOLUTE AUTO 1.13 K/uL (1.50-4.00); LYMPHOCYTES PERCENT AUTO 8.8 % (20.0-40.0); MEAN CORPUSCULAR HEMOGLOBIN 33.3 pg (27.0-32.0); MEAN CORPUSCULAR HGB CONC 35.8 g/dL (31.0-35.0); MEAN CORPUSCULAR VOLUME 93 fL (76-96); MEAN PLATELET VOLUME 10.2 fL (6.0-10.0); MONOCYTES ABSOLUTE AUTO 0.85 K/uL (0.20-0.80); MONOCYTES PERCENT AUTO 6.7 % (3.0-10.0); NEUTROPHILS ABSOLUTE AUTO 10.76 K/uL (2.00-7.50); NEUTROPHILS PERCENT AUTO 84.2 % (45.0-70.0); PLATELET COUNT,PLT 174 K/uL (150-400); RED BLOOD CELL COUNT 4.72 M/uL (4.50-6.50); RED CELL DISTRIBUTION WIDTH 13.2 % (11.0-16.0); WHITE BLOOD CELL COUNT,WBC 12.8 K/uL (4.0-11.0)
[2022-09-24] MEDS ORDERED: LORazepam 2 MG/ML SDV ONE (14:30)
[2022-09-24 14:42] LABS: A/G RATIO 1.2 (0.8-2.0); ALBUMIN 4.8 g/dL (3.4-5.0); ANION GAP 18.9 mmol/L (5.0-15.0); BUN/CREATININE RATIO 11.3 (6-25); CALCIUM 10.5 mg/dL (8.5-10.1); CARBON DIOXIDE,CO2 23.8 mmol/L (21.0-32.0); CREATININE 1.5 mg/dL (0.70-1.30); EST CRCL DRUG DOSING (CG) 58.92 mL/min; POTASSIUM,K 3.7 mmol/L (3.5-5.1); PROTEIN TOTAL,TP 8.7 g/dL (6.4-8.2)
[2022-09-24 14:51] LABS: TROPONIN I HIGH SENSITIVITY 53.5 pg/ml (<=60.4)
[2022-09-24 14:52] LABS: ETHANOL BLOOD MEDICAL < 3.0 mg/dL (<3.0)
[2022-09-24 14:58] LABS: APPEARANCE,URINE SLIGHTLY CLOUDY (CLEAR); BILIRUBIN,URINE NEGATIVE (NEGATIVE); COLOR,URINE YELLOW; GLUCOSE,URINE NEGATIVE (NEGATIVE); KETONES,URINE TRACE mg/dL (NEGATIVE); LEUKOCYTE ESTERASE,URINE NEGATIVE (NEGATIVE); NITRITE,URINE NEGATIVE (NEGATIVE); OCCULT BLOOD,URINE NEGATIVE (NEGATIVE); PH,URINE 5.5 (5.0-8.0); PROTEIN,URINE 100 mg/dL (NEGATIVE); UROBILINOGEN,URINE 0.2 E.U./dL (0.2-1.0)
[2022-09-24 15:04] LABS: CALCIUM OXALATE CRYSTALS,URINE MANY /HPF; EPITHELIAL CELLS,URINE OCCASIONAL /HPF; RBC,URINE NOT SEEN /HPF; WBC,URINE 0-5 /HPF
[2022-09-24 15:10] LABS: AMPHETAMINES SCREEN, URINE NEGATIVE (NEGATIVE); BARBITURATE SCREEN,URINE NEGATIVE (NEGATIVE); BENZODIAZEPINES SCREEN,URINE NEGATIVE (NEGATIVE); METHADONE SCREEN, URINE NEGATIVE (NEGATIVE); METHAMPHETAMINES SCREEN, URINE NEGATIVE (NEGATIVE); OXYCODONE SCREEN,URINE NEGATIVE (NEGATIVE); THC SCREEN,URINE 50 NG/ML NEGATIVE (NEGATIVE)
[2022-09-24] MEDS ORDERED: Sodium Chloride 0.9% 10 ML Syringe FLUSH PRN (15:54)
[2022-09-24 17:59] VITALS: BP 148/98; PULSE 96
== END 2022-09-24 16:21 | disposition home or self-care (01) ==
LOC: LB.ED 13:09
DX: R06.02 Shortness of breath (principal); Z87.891 Personal history of nicotine dependence
CPT/HCPCS: 36415; 71250; 80053; 80307; 81001; 83735; 83880; 84484; 85025; 85379; 93005; 96361; 96374; 99285; J2060; J7030; 93010; 99283

== ENCOUNTER 2022-09-28 17:08 | Emergency (ER) | payer MEDICAID ==
[2022-09-28 17:25] VITALS: BP 129/90; PULSE 75
[2022-09-28] MEDS ORDERED: Ketorolac 60 MG/2 ML SDV IM ONE (17:32)
[2022-09-28] MEDS ORDERED: Morphine 2 MG/ML SYRINGE IM ONE (18:11)
[2022-09-28] MEDS ORDERED: Cyclobenzaprine 10 MG Tab ONE (20:00)
[2022-09-28] MEDS ORDERED: Ibuprofen 400 MG Tab ONE (20:00)
== END 2022-09-28 20:10 | disposition home or self-care (01) ==
LOC: LB.ED 17:08
DX: S20.221A Contusion of right back wall of thorax, initial encounter (principal); W01.198A Fall on same level from slipping, tripping and stumbling with subsequent striking against other object, initial encounter
CPT/HCPCS: 71046; 74176; 96372; 99284; A9270; J1885; J2270; 99283

== ENCOUNTER 2023-01-24 12:53 | Emergency (ER) | payer MEDICAID ==
[2023-01-24 13:06] VITALS: BP 134/90; PULSE 98
== END 2023-01-24 13:35 | disposition home or self-care (01) ==
LOC: LB.ED 12:53
DX: S63.501A Unspecified sprain of right wrist, initial encounter (principal); W11.XXXA Fall on and from ladder, initial encounter
CPT/HCPCS: 29125; 73110-RT; 99283

== ENCOUNTER 2023-03-22 08:01 | Emergency (ER) | payer MEDICAID ==
[2023-03-22 08:14] VITALS: PULSE 81
[2023-03-22] MEDS ORDERED: Ketorolac 60 MG/2 ML SDV IM ONE (08:22)
[2023-03-22] MEDS ORDERED: Diazepam 10 MG Tab PO ONE (08:37)
[2023-03-22] MEDS ORDERED: Orphenadrine 60 MG/2 ML Inj IM ONE (08:37)
[2023-03-22] MEDS ORDERED: Morphine 2 MG/ML SYRINGE IM ONE (09:53)
[2023-03-22] MEDS ORDERED: Morphine 4 MG/ML VIAL ONE (09:55)
[2023-03-22] MEDS ORDERED: traMADol 50 MG Tab ONE (10:30)
[2023-03-22] MEDS ORDERED: Cyclobenzaprine 10 MG Tab ONE (10:30)
[2023-03-22] MEDS ORDERED: Naproxen 500 MG Tab ONE (10:30)
[2023-03-22 18:23] VITALS: BP 122/97
== END 2023-03-22 10:45 | disposition home or self-care (01) ==
LOC: LB.ED 08:01
DX: S22.32XA Fracture of one rib, left side, initial encounter for closed fracture (principal); Z79.899 Other long term (current) drug therapy; W01.198A Fall on same level from slipping, tripping and stumbling with subsequent striking against other object, initial encounter
CPT/HCPCS: 71101-LT; 72128; 96372; 99284; A9270-GY; J1885; J2270; J2360

== ENCOUNTER 2023-10-25 14:53 | Emergency (ER) | payer MEDICAID ==
[2023-10-25] MEDS ORDERED: Sodium Chloride 0.9% 10 ML Syringe FLUSH PRN (15:48)
[2023-10-25] MEDS: Ondansetron 4 MG/2 ML SDV IVPUSH ONE (15:54)
[2023-10-25] MEDS: Sodium Chloride 0.9% 1,000 ML IV SCH ×2 (15:55→17:32)
[2023-10-25] MEDS: LORazepam 2 MG/ML SDV IVPUSH ONE (16:00)
[2023-10-25] MEDS: LORazepam 2 MG/ML SDV ONE (16:02)
[2023-10-25 16:13] LABS: HEMOGLOBIN 16.3 g/dL (13.0-18.0); MEAN CORPUSCULAR HEMOGLOBIN 33.3 pg (27.0-32.0); MEAN CORPUSCULAR HGB CONC 37.9 g/dL (31.0-35.0); MEAN PLATELET VOLUME 9.4 fL (6.0-10.0); RED BLOOD CELL COUNT 4.9 M/uL (4.50-6.50); RED CELL DISTRIBUTION WIDTH 12.6 % (11.0-16.0); WHITE BLOOD CELL COUNT,WBC 8.1 K/uL (4.0-11.0)
[2023-10-25 16:31] LABS: TROPONIN I HIGH SENSITIVITY 26.7 pg/ml (<=60.4)
[2023-10-25 16:34] LABS: A/G RATIO 1.5 (0.8-2.0); ALANINE AMINOTRANSFERASE,ALT 24 U/L (12-78); ALBUMIN 4.9 g/dL (3.4-5.0); ALKALINE PHOSPHATASE 63 U/L (46-116); ANION GAP 20.5 mmol/L (5.0-15.0); ASPARTATE AMNIOTRANSFERASE,AST 27 U/L (15-37); BILIRUBIN TOTAL 1.9 mg/dL (0.0-1.0); BLOOD UREA NITROGEN,BUN 7 mg/dL (8-26); BUN/CREATININE RATIO 8.1 (6-25); CALCIUM 9.8 mg/dL (8.5-10.1); CARBON DIOXIDE,CO2 23.9 mmol/L (21.0-32.0); CHLORIDE,CL 97 mmol/L (98-107); CREATININE 0.86 mg/dL (0.70-1.30); ESTIMATED GFR 105 mL/min (>60); GLUCOSE RANDOM 100 mg/dL (74-100); MAGNESIUM 1.9 mg/dL (1.8-2.4); POTASSIUM,K 3.4 mmol/L (3.5-5.1); PROTEIN TOTAL,TP 8.1 g/dL (6.4-8.2); SODIUM,NA 138 mmol/L (136-145)
[2023-10-25] MEDS: Ketorolac 30 MG/ML SDV IVPUSH ONE (16:40)
[2023-10-25 16:46] LABS: AMPHETAMINES SCREEN, URINE NEGATIVE (NEGATIVE); BARBITURATE SCREEN,URINE NEGATIVE (NEGATIVE); BENZODIAZEPINES SCREEN,URINE NEGATIVE (NEGATIVE); METHADONE SCREEN, URINE NEGATIVE (NEGATIVE); METHAMPHETAMINES SCREEN, URINE NEGATIVE (NEGATIVE); OXYCODONE SCREEN,URINE NEGATIVE (NEGATIVE); THC SCREEN,URINE 50 NG/ML POSITIVE (NEGATIVE)
[2023-10-25] MEDS: Potassium Chloride Riders 10 MEQ in Premix Bag 1 BAG IV ONE (17:32)
[2023-10-25] MEDS: Potassium Chloride Riders 50 ML ONE (17:35)
[2023-10-25] MEDS: Orphenadrine 60 MG/2 ML Inj IM ONE (17:41)
[2023-10-25] MEDS: Ketorolac 30 MG/ML SDV ONE (17:42)
[2023-10-25] MEDS: Orphenadrine 60 MG/2 ML Inj ONE (18:41)
[2023-10-25 19:56] VITALS: BP 145/95; PULSE 98
== END 2023-10-25 19:20 | disposition home or self-care (01) ==
LOC: LB.ED 14:53
DX: R51.9 Headache, unspecified (principal); F41.9 Anxiety disorder, unspecified; F11.988 Opioid use, unspecified with other opioid-induced disorder; F10.10 Alcohol abuse, uncomplicated; Z79.899 Other long term (current) drug therapy
CPT/HCPCS: 36415; 80053; 80307; 83735; 84484; 85027; 85379; 93005; 96361; 96365; 96372; 96375; 99285-25; J1885; J2060; J2360; J2405; J3480; J7030

== ENCOUNTER 2024-04-05 13:29 | Emergency (ER) | payer MEDICAID ==
[2024-04-05] MEDS: Ondansetron 4 MG Tab.DIS PO ONE (14:08)
[2024-04-05] MEDS ORDERED: Sodium Chloride 0.9% 10 ML Syringe FLUSH PRN (14:11)
[2024-04-05] MEDS: Ondansetron 4 MG Tab.DIS ONE (14:57)
[2024-04-05] MEDS: Sodium Chloride 0.9% 1,000 ML IV SCH ×2 (14:57→16:02)
[2024-04-05] MEDS: Ketorolac 30 MG/ML SDV IVPUSH ONE (15:40)
[2024-04-05] MEDS: diazePAM 5 MG/ML MDV IV ONE (15:41)
[2024-04-05 15:54] LABS: COLOR,URINE YELLOW
[2024-04-05 15:55] LABS: APPEARANCE,URINE CLEAR (CLEAR); BILIRUBIN,URINE NEGATIVE (NEGATIVE); GLUCOSE,URINE NEGATIVE (NEGATIVE); KETONES,URINE TRACE mg/dL (NEGATIVE); LEUKOCYTE ESTERASE,URINE NEGATIVE (NEGATIVE); NITRITE,URINE NEGATIVE (NEGATIVE); OCCULT BLOOD,URINE NEGATIVE (NEGATIVE); PH,URINE 5.5 (5.0-8.0); PROTEIN,URINE NEGATIVE (NEGATIVE); UROBILINOGEN,URINE 0.2 E.U./dL (0.2-1.0)
[2024-04-05 16:12] LABS: AMPHETAMINES SCREEN, URINE NEGATIVE (NEGATIVE); BARBITURATE SCREEN,URINE NEGATIVE (NEGATIVE); BENZODIAZEPINES SCREEN,URINE NEGATIVE (NEGATIVE); METHADONE SCREEN, URINE NEGATIVE (NEGATIVE); METHAMPHETAMINES SCREEN, URINE NEGATIVE (NEGATIVE); OXYCODONE SCREEN,URINE NEGATIVE (NEGATIVE); THC SCREEN,URINE 50 NG/ML POSITIVE (NEGATIVE)
[2024-04-05 17:24] VITALS: BP 120/80; PULSE 88
[2024-04-05 17:38] LABS: ANION GAP 12.8 mmol/L (5.0-15.0); BUN/CREATININE RATIO 13.3 (6-25); CALCIUM 8.4 mg/dL (8.5-10.1); CARBON DIOXIDE,CO2 27.3 mmol/L (21.0-32.0); CREATININE 0.98 mg/dL (0.70-1.30); EST CRCL DRUG DOSING (CG) 89.18 mL/min; POTASSIUM,K 3.1 mmol/L (3.5-5.1)
[2024-04-05] MEDS: Potassium Chloride 20 MEQ Tab.ER PO ONE (17:50)
[2024-04-09 21:45] LABS: APTIMA MEDIA TYPE Urine; C. TRACHOMATIS BY TMA Negative (Negative); N. GONORRHOEAE BY TMA Negative (Negative); SPECIMEN SOURCE Urine
== END 2024-04-05 17:53 | disposition home or self-care (01) ==
LOC: LB.ED 13:29
DX: E86.0 Dehydration (principal); E87.6 Hypokalemia; Z79.899 Other long term (current) drug therapy; J98.8 Other specified respiratory disorders; R05.9 Cough, unspecified; R11.0 Nausea
CPT/HCPCS: 36415; 71046; 80048; 80053; 80307; 81003; 85025; 87428-QW; 87491; 87591; 96361; 96374; 96375; 99284; 99284-25; A9270-GY; J1885; J3360; Q0162

== ENCOUNTER 2024-06-19 17:33 | Inpatient (IN) | payer MEDICAID ==
[2024-06-19] MEDS ORDERED: Sodium Chloride 0.9% 10 ML Syringe FLUSH PRN (17:40)
[2024-06-19 18:11] LABS: HEMATOCRIT 28.9 % (40.0-54.0); HEMOGLOBIN 9.3 g/dL (13.0-18.0); MEAN CORPUSCULAR HEMOGLOBIN 29.5 pg (27.0-32.0); MEAN CORPUSCULAR HGB CONC 32.2 g/dL (31.0-35.0); MEAN PLATELET VOLUME 11.7 fL (6.0-10.0); RED BLOOD CELL COUNT 3.15 M/uL (4.50-6.50); RED CELL DISTRIBUTION WIDTH 14.9 % (11.0-16.0)
[2024-06-19 18:18] LABS: WHITE BLOOD CELL COUNT,WBC 22.1 K/uL (4.0-11.0)
[2024-06-19 18:19] LABS: AMPHETAMINES SCREEN, URINE NEGATIVE (NEGATIVE); BARBITURATE SCREEN,URINE NEGATIVE (NEGATIVE); BENZODIAZEPINES SCREEN,URINE POSITIVE (NEGATIVE); METHADONE SCREEN, URINE NEGATIVE (NEGATIVE); METHAMPHETAMINES SCREEN, URINE NEGATIVE (NEGATIVE); OXYCODONE SCREEN,URINE NEGATIVE (NEGATIVE); THC SCREEN,URINE 50 NG/ML POSITIVE (NEGATIVE)
[2024-06-19] MEDS: Morphine 4 MG/ML VIAL IVPUSH ONE (18:21)
[2024-06-19] MEDS: Morphine 4 MG/ML VIAL ONE (18:24)
[2024-06-19 18:25] LABS: APPEARANCE,URINE CLOUDY (CLEAR); COLOR,URINE OTHER; GLUCOSE,URINE NEGATIVE (NEGATIVE); KETONES,URINE 40 mg/dL (NEGATIVE); PROTEIN,URINE 100 mg/dL (NEGATIVE)
[2024-06-19 18:26] LABS: BILIRUBIN,URINE NEGATIVE (NEGATIVE); LEUKOCYTE ESTERASE,URINE NEGATIVE (NEGATIVE); NITRITE,URINE NEGATIVE (NEGATIVE); OCCULT BLOOD,URINE NEGATIVE (NEGATIVE); RBC,URINE 0-5 /HPF; WBC,URINE 0-5 /HPF
[2024-06-19 18:27] LABS: AMORPHOUS SEDIMENT,URINE MANY /HPF; CALCIUM OXALATE CRYSTALS,URINE FEW /HPF; FINE GRANULAR CASTS,URINE OCCASIONAL /HPF; MUCUS,URINE FEW /HPF; SQUAMOUS EPITHELIAL CELLS,UR OCCASIONAL /HPF
[2024-06-19 18:36] LABS: A/G RATIO 1.1 (0.8-2.0); ALBUMIN 3.5 g/dL (3.4-5.0); BILIRUBIN TOTAL 0.9 mg/dL (0.0-1.0); BUN/CREATININE RATIO 8.9 (6-25); CALCIUM 9.4 mg/dL (8.5-10.1); CREATININE 2.24 mg/dL (0.70-1.30); EST CRCL DRUG DOSING (CG) 38.58 mL/min; MAGNESIUM 2.5 mg/dL (1.8-2.4); POTASSIUM,K 3.4 mmol/L (3.5-5.1); PROTEIN TOTAL,TP 6.7 g/dL (6.4-8.2)
[2024-06-19] MEDS: Sodium Chloride 0.9% 1,000 ML IV SCH ×2 (18:40→20:00)
[2024-06-19] MEDS: diazePAM 5 MG/ML MDV IV ONE (18:46)
[2024-06-19 19:08] LABS: ANION GAP 37.5 mmol/L (5.0-15.0)
[2024-06-19 19:12] LABS: CARBON DIOXIDE,CO2 8.9 mmol/L (21.0-32.0)
[2024-06-19] MEDS: cefTRIAXone 1 GM in Sodium Chloride 0.9% 50 ML IV ONE (19:51)
[2024-06-19] MEDS: Lactated Ringers 1,000 ML IV SCH (22:14)
[2024-06-19] MEDS: LORazepam 1 MG Tab PO SCH (22:15)
[2024-06-19] MEDS: Pantoprazole 40 MG Tab.CR PO SCH (22:15)
[2024-06-20] MEDS: traZODone 50 MG Tab PO PRN (00:07)
[2024-06-20] MEDS: Acetaminophen/HYDROcodone 325-5 MG Tab PO PRN (00:07)
[2024-06-20] MEDS: Sertraline 50 MG Tab PO SCH (08:35)
[2024-06-20] MEDS: Acetaminophen 325 MG Tab PO PRN (08:35)
[2024-06-20] MEDS: Potassium Chloride 20 MEQ Tab.ER PO SCH ×2 (08:35→20:07)
[2024-06-20 08:36] LABS: HEMATOCRIT 25.1 % (40.0-54.0); HEMOGLOBIN 8.2 g/dL (13.0-18.0); MEAN CORPUSCULAR HEMOGLOBIN 29.2 pg (27.0-32.0); MEAN CORPUSCULAR HGB CONC 32.7 g/dL (31.0-35.0); RED BLOOD CELL COUNT 2.81 M/uL (4.50-6.50); RED CELL DISTRIBUTION WIDTH 14.9 % (11.0-16.0); WHITE BLOOD CELL COUNT,WBC 9.5 K/uL (4.0-11.0)
[2024-06-20] MEDS: Folic Acid 1 MG Tab PO SCH (08:36)
[2024-06-20 08:53] LABS: ANION GAP 13.4 mmol/L (5.0-15.0); BUN/CREATININE RATIO 16.7 (6-25); CALCIUM 8.2 mg/dL (8.5-10.1); CARBON DIOXIDE,CO2 26.6 mmol/L (21.0-32.0); CREATININE 1.08 mg/dL (0.70-1.30); EST CRCL DRUG DOSING (CG) 80.01 mL/min; MAGNESIUM 2.3 mg/dL (1.8-2.4)
[2024-06-20] MEDS ORDERED: Potassium Chloride 10 MEQ Tab.ER PO SCH (09:30)
[2024-06-20] MEDS: Potassium Chloride Riders 10 MEQ in Premix Bag 1 BAG IV ONE ×2 (10:27→13:36)
[2024-06-20] MEDS: Diazepam 10 MG Tab PO PRN (10:44)
[2024-06-20] MEDS: SUMAtriptan 6 MG/0.5 ML SDV SUBCUT ONE (10:45)
[2024-06-20] MEDS: Ondansetron 4 MG/2 ML SDV IV PRN (11:22)
[2024-06-20] MEDS: chlordiazePOXIDE 25 MG Cap PO SCH (13:29)
[2024-06-20] MEDS: PHENobarbital 32.4 MG Tab PO ONE (13:29)
[2024-06-20] MEDS: Ferrous Sulfate 325 MG Tab PO SCH (16:43)
[2024-06-20] MEDS: Non-Formulary Medication 1 Each (Aripiprazole [Abilify] 15 MG Tablet) PO SCH (20:07)
[2024-06-21 08:31] LABS: HEMOGLOBIN 7.9 g/dL (13.0-18.0); MEAN CORPUSCULAR HEMOGLOBIN 28.6 pg (27.0-32.0); MEAN CORPUSCULAR HGB CONC 31.6 g/dL (31.0-35.0); MEAN PLATELET VOLUME 9.6 fL (6.0-10.0); RED BLOOD CELL COUNT 2.76 M/uL (4.50-6.50); RED CELL DISTRIBUTION WIDTH 15.1 % (11.0-16.0); WHITE BLOOD CELL COUNT,WBC 7.6 K/uL (4.0-11.0)
[2024-06-21 08:41] LABS: A/G RATIO 1.1 (0.8-2.0); ALBUMIN 3.2 g/dL (3.4-5.0); ANION GAP 15.6 mmol/L (5.0-15.0); BILIRUBIN TOTAL 0.5 mg/dL (0.0-1.0); BUN/CREATININE RATIO 13.7 (6-25); CALCIUM 8.8 mg/dL (8.5-10.1); CARBON DIOXIDE,CO2 24.7 mmol/L (21.0-32.0); CREATININE 0.95 mg/dL (0.70-1.30); EST CRCL DRUG DOSING (CG) 90.96 mL/min; POTASSIUM,K 3.3 mmol/L (3.5-5.1)
[2024-06-21 09:44] VITALS: BP 123/83; PULSE 101
== END 2024-06-21 09:53 | disposition home or self-care (01) | DRG 913 ==
LOC: LB.ED 17:33 → LB.MS 21:03
PROVIDERS: ADMIT Surgery; ATTEND Surgery
DX: S09.90XA Unspecified injury of head, initial encounter (principal); K85.90 Acute pancreatitis without necrosis or infection, unspecified; N17.9 Acute kidney failure, unspecified; S06.0X0A Concussion without loss of consciousness, initial encounter; R51.9 Headache, unspecified; G89.29 Other chronic pain; D72.828 Other elevated white blood cell count; R74.8 Abnormal levels of other serum enzymes; F10.10 Alcohol abuse, uncomplicated; F41.9 Anxiety disorder, unspecified; F32.A Depression, unspecified; E87.6 Hypokalemia; D64.9 Anemia, unspecified; E86.0 Dehydration; Z79.899 Other long term (current) drug therapy
CPT/HCPCS: 36415; 70450; 72125; 80048; 80053; 80307; 81001; 83690; 83735; 85027; 93005; 96361; 96365; 96375; 99222; 99238; 99285-25; A9270-GY; J0696; J2270; J2405; J3360; J3480; J7030; J7120

== ENCOUNTER 2024-06-24 19:11 | Emergency (ER) | payer MEDICAID ==
[2024-06-24] MEDS: Sodium Chloride 0.9% 1,000 ML IV ONE (19:49)
[2024-06-24] MEDS: Thiamine 100 MG in Sodium Chloride 0.9% 100 ML IV ONE (20:00)
[2024-06-24 20:18] LABS: BASOPHILS ABSOLUTE AUTO 0.01 K/uL (0.02-0.10); BASOPHILS PERCENT AUTO 0.2 % (0.0-0.5); EOSINOPHILS ABSOLUTE AUTO 0.06 K/uL (0.04-0.40); EOSINOPHILS PERCENT AUTO 1.1 % (1.0-5.0); HEMOGLOBIN 9.1 g/dL (13.0-18.0); LYMPHOCYTES ABSOLUTE AUTO 2.04 K/uL (1.50-4.00); LYMPHOCYTES PERCENT AUTO 36.6 % (20.0-40.0); MEAN CORPUSCULAR HEMOGLOBIN 29.4 pg (27.0-32.0); MEAN CORPUSCULAR HGB CONC 31.4 g/dL (31.0-35.0); MEAN CORPUSCULAR VOLUME 94 fL (76-96); MEAN PLATELET VOLUME 9.1 fL (6.0-10.0); MONOCYTES ABSOLUTE AUTO 1.26 K/uL (0.20-0.80); MONOCYTES PERCENT AUTO 22.6 % (3.0-10.0); NEUTROPHILS PERCENT AUTO 39.5 % (45.0-70.0); PLATELET COUNT,PLT 299 K/uL (150-400); RED BLOOD CELL COUNT 3.09 M/uL (4.50-6.50); WHITE BLOOD CELL COUNT,WBC 5.6 K/uL (4.0-11.0)
[2024-06-24 20:34] LABS: A/G RATIO 1.1 (0.8-2.0); ALBUMIN 3.8 g/dL (3.4-5.0); ANION GAP 16.5 mmol/L (5.0-15.0); BILIRUBIN TOTAL 0.3 mg/dL (0.0-1.0); BUN/CREATININE RATIO 7.3 (6-25); CALCIUM 9.5 mg/dL (8.5-10.1); CARBON DIOXIDE,CO2 30.4 mmol/L (21.0-32.0); CREATININE 1.1 mg/dL (0.70-1.30); POTASSIUM,K 3.9 mmol/L (3.5-5.1); PROTEIN TOTAL,TP 7.2 g/dL (6.4-8.2)
[2024-06-24 20:41] LABS: AMPHETAMINES SCREEN, URINE NEGATIVE (NEGATIVE)
[2024-06-24 20:42] LABS: BARBITURATE SCREEN,URINE POSITIVE (NEGATIVE); BENZODIAZEPINES SCREEN,URINE POSITIVE (NEGATIVE); METHADONE SCREEN, URINE NEGATIVE (NEGATIVE); METHAMPHETAMINES SCREEN, URINE NEGATIVE (NEGATIVE); OXYCODONE SCREEN,URINE NEGATIVE (NEGATIVE); THC SCREEN,URINE 50 NG/ML NEGATIVE (NEGATIVE)
[2024-06-24 20:45] LABS: KETONES,BLOOD NEGATIVE (NEGATIVE)
[2024-06-24 20:47] LABS: APPEARANCE,URINE CLEAR (CLEAR); BILIRUBIN,URINE NEGATIVE (NEGATIVE); COLOR,URINE YELLOW; GLUCOSE,URINE NEGATIVE (NEGATIVE); KETONES,URINE NEGATIVE (NEGATIVE); LEUKOCYTE ESTERASE,URINE NEGATIVE (NEGATIVE); NITRITE,URINE NEGATIVE (NEGATIVE); OCCULT BLOOD,URINE NEGATIVE (NEGATIVE); PROTEIN,URINE NEGATIVE (NEGATIVE); RBC,URINE NOT SEEN /HPF; UROBILINOGEN,URINE 0.2 E.U./dL (0.2-1.0); WBC,URINE NOT SEEN /HPF
[2024-06-24] MEDS: diazePAM 10 MG Tab PO ONE (20:57)
[2024-06-25 00:12] VITALS: BP 122/78; PULSE 92
[2024-06-25] MEDS ORDERED: Sodium Chloride 0.9% 10 ML Syringe FLUSH PRN (01:52)
== END 2024-06-24 20:58 | disposition home or self-care (01) ==
LOC: LB.ED 19:11
DX: F10.10 Alcohol abuse, uncomplicated (principal); R51.9 Headache, unspecified; Z79.899 Other long term (current) drug therapy; Y90.9 Presence of alcohol in blood, level not specified
CPT/HCPCS: 36415; 71045; 80053; 80307; 81001; 82009; 85025; 96365; 99284; 99285-25; A9270-GY; J3411; J7030

== ENCOUNTER 2024-11-14 12:13 | Emergency (ER) | payer MEDICAID ==
[2024-11-14] MEDS: Ketorolac 30 MG/ML SDV IM ONE (12:43)
[2024-11-14 14:18] VITALS: BP 111/69; PULSE 84
[2024-11-17] MEDS: Ketorolac 30 MG/ML SDV ONE (09:29)
== END 2024-11-14 14:22 | disposition home or self-care (01) ==
LOC: LB.ED 12:13
DX: S50.11XA Contusion of right forearm, initial encounter (principal); W18.30XA Fall on same level, unspecified, initial encounter; Y92.009 Unspecified place in unspecified non-institutional (private) residence as the place of occurrence of the external cause
CPT/HCPCS: 73030-RT; 73080-RT; 73090-RT; 96372; 99283; J1885